=== PATIENT | female | born 1970 | race Asian ===

== ENCOUNTER 2017-08-11 10:06 | Emergency (ER) | payer OTHER ==
[~2017-08-11] VITALS: Ht 149.9 cm; Wt 64.4 kg
[~2017-08-11 10:06] MED LIST: ANTIVERT12.5 MG PO; MACROBID 100 M100 MG PO; MULTIVITAMINS1 EAC7 PO; PERCOCET 7.5-31 EACH PO; PYRIDIUM200 MG PO
[2017-08-11] MEDS ORDERED: PROTONIX40 MG PO (11:25)
--- NOTE | 2017-08-12 10:35 | EKG ---
[facility] [address] [facility] [place], [place] [address] Signed Normal sinus rhythm Normal ECG No previous ECGs available Confirmed by LUIS PARIKH MD ([id number]) on 08/12/2017 10:35:15 AM Electronically Signed By: LUIS PARIKH MD 08/12/17 1035 PATIENT NAME: GINETTE VELEZ Electrocardiogram DATE OF : 70 PHYSICIAN: LUIS PARIKH MD REPORT #: [id number] REPORT IS CONFIDENTIAL AND NOT TO BE RELEASED WITHOUT AUTHORIZATION
== END 2017-08-11 11:30 | disposition home or self-care (01) ==
LOC: ED 10:06
DX: R10.13 Epigastric pain (principal); R10.817 Generalized abdominal tenderness; Z90.49 Acquired absence of other specified parts of digestive tract
CPT/HCPCS: 80053; 81001; 83690; 84703; 85025; 93005; 93010; 96374; 96375; 99284; J1170; J2405

== ENCOUNTER 2021-06-01 20:13 | Emergency (ER) | payer OTHER ==
[~2021-06-01] VITALS: Ht 149.9 cm; Wt 64.4 kg
[~2021-06-01 20:13] MED LIST changes: +PROTONIX40 MG PO
[2021-06-02] MEDS ORDERED: ZOFRAN4 MG PO (00:13)
[2021-06-02] MEDS ORDERED: PROTONIX40 MG PO (00:13)
== END 2021-06-02 00:37 | disposition home or self-care (01) ==
LOC: ED 20:13
DX: K29.00 Acute gastritis without bleeding (principal)
CPT/HCPCS: 80053; 81001; 83690; 84703; 85025; 96374; 99284-25; J2405

== ENCOUNTER 2022-02-08 14:40 | Emergency (ER) | payer OTHER ==
[~2022-02-08] VITALS: Ht 149.9 cm; Wt 64.4 kg
[~2022-02-08 14:40] MED LIST changes: +ZOFRAN4 MG PO
[2022-02-08] MEDS ORDERED: ONDANSETRON ODT4 MG PO (17:24)
== END 2022-02-08 17:49 | disposition home or self-care (01) ==
LOC: ED 14:40
DX: R10.13 Epigastric pain (principal); R19.7 Diarrhea, unspecified
CPT/HCPCS: 36415; 74177; 80053; 83690; 85025; 96375; 99284-25; J1170; J2405; J7030; Q9967

== ENCOUNTER 2023-09-08 11:19 | Day surgery (SDC) | payer OTHER ==
[~2023-09-08] VITALS: Ht 149.9 cm; Wt 66.3 kg
[~2023-09-08 11:19] MED LIST changes: +MULTI-VITAMIN1 EACH PO; +ONDANSETRON ODT4 MG PO
[2023-09-08 11:32] VITALS: BP 152/88
--- NOTE | 2023-09-08 13:52 | NUR ---
09/08/23 1352 Dianelys Wolfe 1343- PT ARRIVES TO PACU, LEFT LATERAL POSITION. PT REACTIVE TO STIMULUS, REORIENTED TO TIME AND PLACE. ABD SOFT, NON DISTENDED. ENCOURAGED TO PASS GAS. LR INFUSING TO RH IV, O2 AT 2L PER NC. PT BACK TO RESTING, ALL MONITORS IN PLACE. 1350- O2 SATS REMAIN 100% ON 2L PER NC, MOVED TO ROOM AIR AT THIS TIME, WILL CONTINUE TO MONITOR.
[2023-09-08 14:07] VITALS: BP 125/73
--- NOTE | 2023-09-09 14:14 | OR ---
[facility] [address] [place], [place] [address] Signed DATE OF OPERATION: 09/08/2023 SURGEON: Jose Lombardi MD PREOPERATIVE DIAGNOSES: 1. Family history of colon cancer (father). 2. Initial screening colonoscopy. POSTOPERATIVE DIAGNOSIS: Minimal diverticular change of left colon, otherwise normal. PROCEDURE: Total colonoscopy to cecum. ANESTHESIA: Intravenous sedation, fentanyl 150 mcg and Versed 6 mg. INDICATIONS: This 52-year-old, [place] woman, is a patient of Dr. Gaviota Mandel and LUIS Zamudio. She has been referred for colon screening. She has never had colonoscopy in the past. Notably, she recently was made aware that her father who lives in the [facility] has metastatic colon cancer. On the basis of her family history and her age, screening colonoscopy at this time is appropriate. The risk of bleeding, infection, perforation, and other unforeseen complications were reviewed in detail. She understands and wished to proceed. FINDINGS: The prep was excellent. Complete colonoscopy was undertaken to the cecum without question. Good visualization of the appendiceal orifice and ileocecal valve was noted. Remaining colon was free of polyps or cancer or colitis. There were few scattered diverticula of the left colon. DESCRIPTION OF PROCEDURE: The patient was brought to the endoscopy suite and placed in lateral decubitus position given intravenous sedation to the point of slurred speech and nystagmus. Digital rectal examination was normal. An Olympus video colonoscope was passed in the rectum and manipulated throughout the colon, noting a few scattered diverticula of the left colon. Scope was ultimately advanced to the cecum. The ileocecal valve and appendiceal orifice were well visualized Electronically Signed By: JOSE LOMBARDI MD 09/09/23 1414 PATIENT NAME: GINETTE VELEZ V OPERATIVE REPORT DATE OF : 70 REPORT #: [id number] PHYSICIAN: JOSE LOMBARDI MD PCP: CHRISTELLE JOHNSON PAC REPORT IS CONFIDENTIAL AND NOT TO BE RELEASED WITHOUT AUTHORIZATION [facility] [address] [place], [place] [address] Signed and normal. The scope was then withdrawn and careful inspection upon withdrawal of scope showed no sign of abnormality other than a few diverticula. Retroflexed view was normal as well. The scope was removed, and the patient was taken to the recovery room in good condition. CONCLUDING DIAGNOSIS: Minimal diverticula. No evidence of polyps, cancer, or colitis. PLAN: We would recommend repeat colonoscopy in 5 years based on family history of colon cancer in her father (a first degree relative). She will return to the ongoing care of LUIS Zamudio as well as Dr. Gaviota Mandel. MD FANTA [employer]/VIDAL /[id number] cc: MD Christelle Pacheco PA-C Copies: GAVIOTA MANDEL MD, ERIKA PAC ~ Electronically Signed By: JOSE LOMBARDI MD 09/09/23 1414 PATIENT NAME: GINETTE VELEZ V OPERATIVE REPORT DATE OF : 70 REPORT #: [id number] PHYSICIAN: JOSE LOMBARDI MD PCP: CHRISTELLE JOHNSON PAC REPORT IS CONFIDENTIAL AND NOT TO BE RELEASED WITHOUT AUTHORIZATION
== END 2023-09-08 14:15 | disposition home or self-care (01) ==
LOC: OPS 11:19 → DS 11:23 → OPS 13:00 → DS 14:00 → OPS 14:15
PROVIDERS: ATTEND Surgery
PROC: 0DJD8ZZ Inspection of Lower Intestinal Tract, Via Natural or Artificial Opening Endoscopic (ICD-10-PCS; principal; 2023-09-08 13:00)
DX: Z12.11 Encounter for screening for malignant neoplasm of colon (principal); K57.30 Diverticulosis of large intestine without perforation or abscess without bleeding; Z80.0 Family history of malignant neoplasm of digestive organs; K80.00 Calculus of gallbladder with acute cholecystitis without obstruction; Z98.890 Other specified postprocedural states
CPT/HCPCS: J2250; J2310; J3010